=== PATIENT | male | born 1955 | race Hispanic/Latino ===

== ENCOUNTER → 2024-09-21 | Outpatient (CLI) | payer OTHER | END | disposition home or self-care (01) | LOC: RAH 09:04 | PROVIDERS: ATTEND Internal Medicine | DX: Z72.0 Tobacco use (principal) | CPT/HCPCS: 76775 ==

== ENCOUNTER 2025-02-16 05:47 | Day surgery (SDC) | payer OTHER ==
[~2025-02-16] VITALS: Ht 185.4 cm; Wt 86.2 kg
[2025-02-16] VITALS (9 sets, daily range): BP systolic 110–146; BP diastolic 61–73; PULSE 59–77; RESP 14–20; TEMP 97.1–98.7
[~2025-02-16 05:47] MED LIST: EMPA25TA PO; FERS325 PO; LISI10TA24 PO; ROSU10TA72 PO; TAMS-1 PO; TIRZ2.5P SQ; TRAM50TA4 PO
[2025-02-16] MEDS: 0.9%NACL 1000ML 1,000 ML IV ONE (06:22)
[2025-02-16] MEDS ORDERED: proPOFol 10 MG/ML 20ML VIAL IV ONE ×2 (07:21→07:29)
== END 2025-02-16 09:05 | disposition home or self-care (01) ==
LOC: DAH 05:47 → ENDO 05:47
PROVIDERS: ATTEND Internal Medicine Gastroenterology
DX: K21.00 Gastro-esophageal reflux disease with esophagitis, without bleeding (principal); K44.9 Diaphragmatic hernia without obstruction or gangrene; K29.50 Unspecified chronic gastritis without bleeding; B37.81 Candidal esophagitis; K31.89 Other diseases of stomach and duodenum; K31.A11 Gastric intestinal metaplasia without dysplasia, involving the antrum; K59.00 Constipation, unspecified; K57.30 Diverticulosis of large intestine without perforation or abscess without bleeding; I10 Essential (primary) hypertension; E11.9 Type 2 diabetes mellitus without complications; E78.00 Pure hypercholesterolemia, unspecified; M19.90 Unspecified osteoarthritis, unspecified site; Z86.0100 Personal history of colon polyps, unspecified; Z79.899 Other long term (current) drug therapy
CPT/HCPCS: 43239; 00731; 82948; J7030 ×2; J2704 ×2; A4620; A4215 ×2; A4223; A4222; A4221; A4663; A4606; J3490